=== PATIENT | female | born 2005 | race Two or more races ===

== ENCOUNTER 2023-12-18 13:57 | Emergency (ER) | payer OTHER ==
[2023-12-18 14:05] VITALS: BP 101/65; PULSE 95; RESP 16; TEMP 98.3; BMI 22.4
[2023-12-18] MEDS ORDERED: ACETAMINOPHEN 325 MG TABLET (FP) ONE (14:21)
[2023-12-18] MEDS ORDERED: IBUPROFEN 400 MG TABLET (FP) PO ONE (14:21)
[2023-12-18] MEDS ORDERED: ONDANSETRON *ODT* 4 MG TABLET ONE (14:25)
[2023-12-18] MEDS: ACETAMINOPHEN 325 MG TABLET (FP) PO ONE (14:28)
[2023-12-18] MEDS: ONDANSETRON *ODT* 4 MG TABLET SL ONE (14:28)
[2023-12-18] MEDS: IBUPROFEN 400 MG TABLET (FP) PO ONE (14:28)
== END 2023-12-18 14:33 | disposition home or self-care (01) ==
LOC: JERFT 13:57
DX: R51.9 Headache, unspecified (principal); R11.0 Nausea; W50.0XXA Accidental hit or strike by another person, initial encounter
CPT/HCPCS: 99283-25; Q0162

== ENCOUNTER 2024-11-11 09:57 | Emergency (ER) | payer OTHER ==
[2024-11-11 10:04] VITALS: BP 110/73; PULSE 100; RESP 20; TEMP 99.2; BMI 26.5
[2024-11-11] MEDS ORDERED: IBUPROFEN 600 MG TABLET (FP) PO ONE (10:09)
[2024-11-11] MEDS ORDERED: ACETAMINOPHEN 500 MG TABLET (FP) ONE (10:10)
[2024-11-11] MEDS: IBUPROFEN 600 MG TABLET (FP) PO ONE (10:16)
[2024-11-11] MEDS: ACETAMINOPHEN 500 MG TABLET (FP) PO ONE (10:16)
== END 2024-11-11 11:51 | disposition home or self-care (01) ==
LOC: JER 09:57
DX: S06.0X0A Concussion without loss of consciousness, initial encounter (principal); G43.909 Migraine, unspecified, not intractable, without status migrainosus; W01.198A Fall on same level from slipping, tripping and stumbling with subsequent striking against other object, initial encounter
CPT/HCPCS: 70450-TC; 99284-25